=== PATIENT | female | born 1985 | race Caucasian/White ===

== ENCOUNTER 2016-09-01 09:09 | Emergency (ER) | payer OTHER ==
[~2016-09-01] VITALS: Ht 154.9 cm; Wt 80.7 kg
--- NOTE | 2016-09-01 09:24 | NUR ---
PT AMBULATED TO BED 3.
[2016-09-01 09:25] VITALS: BP 120/69
--- NOTE | 2016-09-01 09:30 | NUR ---
31F BIB SELF C/O LEFT 5TH DIGIT FINGER PAIN, SHARP, RADIATES TO MIDDLE OF LEFT HAND, 08/16 X 3 WEEKS; PT STATES "THROWN INTO A POOL" AT A [employer] X 3 WEEKS AGO; SWELLING NOTED TO MID KNUCKLE OF AFFECTED DIGIT AT THIS TIME; LEFT CAP REFILL < 2 SECONDS, LEFT RADIAL PULSE PALPABLE, NO LOSS OF SENSATION TO LEFT HAND AT THIS TIME; PT AA&OX4, PERRLA, BL LUNG SOUNDS CLEAR, RR EVEN/UNLABORED, SKIN IS WARM/DRY/INTACT AT THIS TIME; STEADY GAIT; PT RESTING IN BED W/ HOB ELEVATED AND IN LOWEST POSITION; POSITIONED FOR COMFORT; ER MD MADE AWARE OF STATUS. WILL CONTINUE TO MONITOR.
--- NOTE | 2016-09-01 09:37 | NUR ---
ER MD DR. GILL EVALUATING PT AT BEDSIDE.
--- NOTE | 2016-09-01 09:40 | NUR ---
PT TAKEN TO XRAY VIA W/C ACCOMPANIED BY [employer] AT THIS TIME.
[2016-09-01] MEDS: IBUPROFEN 600 MG TAB PO ONE (09:49)
[2016-09-01] MEDS: ACETAMINOPHEN EXTRA STRENGTH 500 MG TAB PO ONE (09:49)
[2016-09-01] MEDS: traMADol 50 MG TAB PO ONE (10:40)
[2016-09-01 11:00] VITALS: BP 128/65
--- NOTE | 2016-09-01 11:00 | NUR ---
Patient discharged with v/s stable. Written and verbal after care instructions given and explained. Patient alert, oriented and verbalized understanding of instructions. Ambulatory with steady gait. All questions addressed prior to discharge. ID band removed. Patient advised to follow up with PMD. Rx of ULTRAM 50MG TAB given. Patient educated on indication of medication including possible reaction and side effects. Opportunity to ask questions provided and answered.
== END 2016-09-01 11:00 | disposition home or self-care (01) ==
LOC: MED 09:09
DX: S63.617A Unspecified sprain of left little finger, initial encounter (principal); X58.XXXA Exposure to other specified factors, initial encounter; Y93.89 Activity, other specified; Y92.89 Other specified places as the place of occurrence of the external cause; Y99.8 Other external cause status
CPT/HCPCS: 73140; 99284